=== PATIENT | male | born 1945 | race Caucasian/White ===

== ENCOUNTER → 2019-01-09 | Outpatient (CLI) | payer OTHER, MEDICARE ==
[2019-01-09 09:10] LABS: ALKALINE PHOSPHATASE 52 U/L (46-116); BILIRUBIN TOTAL 0.33 mg/dL (0.20-1.00); CARBON DIOXIDE 27.5 mmol/L (21-32); CHLORIDE SERUM 109 mmol/L (98-107); CHOLESTEROL 140 mg/dL (<200); CHOLESTEROL/HDL RATIO 3.4; HDL CHOLESTEROL 41 mg/dL (40-60); POTASSIUM SERUM 4.1 mmol/L (3.5-5.1); SODIUM SERUM 144 mmol/L (136-145); TOTAL PROTEIN, SERUM 7.3 g/dL (6.4-8.2); TRIGLYCERIDES 51 mg/dL (<150)
[2019-01-09 09:11] LABS: ALBUMIN 3.5 g/dL (3.4-5.0); ALT/SGPT 19 U/L (16-63); AST/SGOT 10 U/L (15-37); CALCIUM 8.6 mg/dL (8.5-10.1); GLUCOSE SERUM 99 mg/dL (74-106)
[2019-01-09 09:47] LABS: FREE T4 0.96 ng/dL (0.76-1.46)
== END | disposition home or self-care (01) ==
LOC: LB 07:06
DX: E03.9 Hypothyroidism, unspecified (principal); R53.81 Other malaise; I10 Essential (primary) hypertension
CPT/HCPCS: 84439